=== PATIENT | female | born 1975 | race Caucasian/White ===

== ENCOUNTER 2020-03-29 17:16 | Emergency (ER) | payer MEDICAID, SELFPAY ==
[2020-03-29 17:35] VITALS: BP 133/88; PULSE 84; RESP 17; TEMP 36.9; O2SAT 98; BMI 16.6
--- NOTE | 2020-03-29 17:52 | HMH.EDUTC ---
[facility] [place] Impression: Encounter for laboratory testing for COVID-19 virus Sinusitis Qualifiers: Sinusitis location: unspecified location Chronicity: unspecified Qualified Code(s): J32.9 - Chronic sinusitis, unspecified Disposition: Home, Self-Care Condition on Discharge: Good Instructions: Sinusitis, Sinus Headache, DI for Sinusitis, Preventing the Spread of Coronavirus Discharge Instructions Additional Instructions: *Monitor Temp, Over the counter Motrin or Tylenol as directed/as needed Tylenol every 4 hours and Motrin every 6 hours (as long as your family doctor has told you that you can take it) for fever or pain. and straight to ER if unable to lower temp less than 101.0 after medication given *Warm salt water gargles may help to soothe the throat *Throat Lozenges *Warm fluids like tea with honey may help to soothe the throat *Sleep elevated *Humidifier/Vaporizer Follow up IMMEDIATELY for new or worsening symptoms or no Noticeable improvement over the next 48-72 hours. 911 for difficulty breathing or swallowing You was tested for today for COVID19 your test result should be back in the next 24-48 hours, you may call to the [facility] tomorrow to see if your test results are back and the result [phone] [facility] hours are 9am-9pm You was given a handout with instructions for Self Quarantine and Self isolation for while you wait on test results and what to do if they are positive If you are positive the Health Dept will be contacting you also Prescriptions: Fluticasone Propionate [Flonase 50mcg nasal spray 16gm] 1 spr NS DAILY #1 bottle Transmission Status: Pending to [facility] # Azithromycin [Z-Zeke 250mg Tab] 250 mg PO DIRECTED #6 tab Transmission Status: Pending to [facility] # Referrals: PCP,No [Primary Care Provider] - As needed Forms: Work/School Release Time of Disposition: 18:07 Medical Decision Making - Jamir Inquiry Pt receiving controlled substance: No Jamir was queried for this patient: No Vital Signs: 03/29/20 17:35 Temperature 98.4 F Temperature Source Oral Pulse Rate [Right Brachial] 84 Respiratory Rate 17 Blood Pressure [Right Arm] 133/88 Blood Pressure Mean [Right Arm] 103 Blood Pressure Source [Right Arm] Automatic Cuff Blood Pressure Position [Right Arm] Sitting 02 Sat by Pulse Oximetry 98 Oxygen Delivery Method Room Air Orders (Tests/Meds): ORDERS Category Date Time Status Covid-19 Nasal PCR Sendout [facility] 03/29/20 17:30 Re[place] [facility] [place] - General Stated complaint: Cov test, LARIOS Time Seen by Provider: 03/29/20 17:52 Mode of Arrival: Ambulatory Source of Information: Patient Limitations: No Limitations Description of Symptoms (Recalled from Triage Doc. by RN): PATIENT REQUESTING COVID TEST. C/O LOSS OF TASTE AND SMELL AND HEADACHE X 1 WEEK HEENT Symptoms (Recalled from RN notes): No Resp Symptoms (Recalled from RN notes): No Skin Symptoms (Recalled from RN notes): No MS Symptoms (Recalled from RN notes): No Functional Status (Recalled from RN notes): WNL - History of Present Illness Provider Complaint: Patient states that she has not been exposed to COVID that she is aware of States that for over a week she has been having sinus pain and pressure, headache and now having loss of smell and taste State that she wanted to get tested for COVID to see if she may have it and get checked out - Related Data Previous Rx's Medication Instructions Recorded Azithromycin [Z-Zeke 250mg Tab] 250 mg PO DIRECTED #6 tab 03/29/20 Fluticasone Propionate [Flonase 1 spr NS DAILY #1 bottle 03/29/20 50mcg nasal spray 16gm] Allergies Allergy/AdvReac Type Severity Reaction Status Date / Time No Known Allergies Allergy Verified 03/29/20 18:01 - Worker's Comp Is this a Worker's Comp case?: No [facility] History - Hepatitis A Screen Drug use history?: No High risk sexual behaviors?: No History of sexually trans
[2020-03-29 18:11] VITALS: BP 133/88; PULSE 84; RESP 17; TEMP 36.9; O2SAT 98
[2020-03-30 04:31] LABS: Adenovirus,PCR Not Detected (NotDetected); Bordetella Pertussis Not Detected (NotDetected); Chlamydophila Pneumoniae, PCR Not Detected (NotDetected); Coronavirus 229E Not Detected (NotDetected); Coronavirus NL63 Not Detected (NotDetected); Coronavirus OC43 Not Detected (NotDetected); Coronovirus HKU1,PCR Not Detected (NotDetected); Human Metapneumovirus Not Detected (NotDetected); Influenza A, PCR Not Detected (NotDetected); Influenza AH1, 2009 Not Detected (NotDetected); Influenza AH1, PCR Not Detected (NotDetected); Influenza AH3,PCR Not Detected (NotDetected); Influenza B, PCR Not Detected (NotDetected); Mycoplasma Pneumoniae, PCR Not Detected (NotDetected); Parainfluenza 1, PCR Not Detected (NotDetected); Parainfluenza 2, PCR Not Detected (NotDetected); Parainfluenza 3, PCR Not Detected (NotDetected); Respiratory Syncytial Virus Not Detected (NotDetected)
[2020-03-30 05:53] LABS: Coronavirus 19, PCR Detected (NotDetected); Parainfluenza 4, PCR Detected (NotDetected); Rhinovirus/Enterovirus Detected (NotDetected)
--- NOTE | 2020-03-30 09:42 | PC.NURSE ---
Attempted to call lab results to patient. No answer. Message left.
--- NOTE | 2020-03-30 11:25 | PC.NURSE ---
pt notified of positive covid results at this time
== END 2020-03-29 18:13 | disposition home or self-care (01) ==
PROVIDERS: Emergency Provider Nurse Practitioner
DX: U07.1 COVID-19 (principal)
CPT/HCPCS: 87581; 87633; 87798; 99201; U0004